=== PATIENT | male | born 1945 | race Native Hawaiian/Other Pacific Islander ===

== ENCOUNTER 2016-06-27 09:10 | Outpatient (CLI) | payer OTHER | END 2016-06-27 19:37 | disposition home or self-care (01) | LOC: LAB 09:10 | DX: R19.7 Diarrhea, unspecified (principal) | CPT/HCPCS: 82272; 87045; 87205; 87328; 87329; 87493; 87798; 87899 ==

== ENCOUNTER 2016-08-24 09:55 | Outpatient (CLI) | payer OTHER | END 2016-08-24 11:00 | disposition home or self-care (01) | LOC: LABW 09:55 | DX: R19.7 Diarrhea, unspecified (principal) | CPT/HCPCS: 82272; 87045; 87077; 87205; 87328; 87329; 87493; 87798; 87899 ==

== ENCOUNTER → 2020-05-18 10:50 | Outpatient (CLI) | payer OTHER ==
[2020-05-18 11:36] LABS: PLATELET COUNT 469 K/uL (142-355)
[2020-05-18 12:01] LABS: POTASSIUM 4.6 mmol/L (3.6-5.2)
== END | disposition home or self-care (01) ==
LOC: LAB 10:50
PROVIDERS: ATTEND Internal Medicine
DX: R03.1 Nonspecific low blood-pressure reading (principal); D64.89 Other specified anemias
CPT/HCPCS: 80053; 85027

== ENCOUNTER 2021-11-14 11:16 | Outpatient (CLI) | payer OTHER | END 2021-11-14 19:58 | disposition home or self-care (01) | LOC: RAD 11:16 | PROVIDERS: ATTEND Internal Medicine Sleep Medicine | DX: R06.09 Other forms of dyspnea (principal) ==

== ENCOUNTER 2022-01-21 07:20 | Inpatient (IN) | payer OTHER ==
[~2022-01-21] VITALS: Ht 180.3 cm; Wt 82.6 kg
[2022-01-21] VITALS (12 sets, daily range): BP systolic 96–180; BP diastolic 51–110; TEMP 98.4–100.1; Ht 180.3 cm; Wt 82.6 kg
[2022-01-21 08:43] LABS: PLATELET COUNT 228 K/uL (142-355)
[2022-01-21 08:59] LABS: PARTIAL THROMBOPLASTIN TIME 40.8 SECONDS (24.5-33.6)
[2022-01-21 09:07] LABS: POTASSIUM 4.2 mmol/L (3.6-5.2)
[2022-01-21] MEDS ORDERED: EUTHYROX50 MCG PO (12:45)
[2022-01-21] MEDS ORDERED: CLOP75TA2 PO (12:46)
[2022-01-21] MEDS ORDERED: SPIRONOLACT25 MG PO (12:46)
[2022-01-21] MEDS ORDERED: OMEP40CA PO (12:47)
[2022-01-21] MEDS ORDERED: XARELTO20 MG PO (12:48)
[2022-01-21] MEDS ORDERED: LISINOPRIL PO (12:50)
[2022-01-21] MEDS ORDERED: RANO500T PO (12:51)
[2022-01-21] MEDS ORDERED: CARV6.25 PO (12:53)
[2022-01-21] MEDS ORDERED: DULO60CA2 PO (12:53)
[2022-01-21] MEDS ORDERED: OMEGA 31000 MG PO (12:54)
[2022-01-21] MEDS ORDERED: METHOTREXA50 MG/2 M2 SC (12:55)
[2022-01-21] MEDS ORDERED: CO Q-10200 MG PO (12:56)
[2022-01-21] MEDS ORDERED: PRESERVISION AREDS 2 PO (12:56)
[2022-01-21] MEDS ORDERED: VITAMIN D325 MCG PO (12:57)
[2022-01-21] MEDS ORDERED: MELATONIN10 M2 PO (12:58)
[2022-01-21] MEDS ORDERED: ZINC50 M1 PO (12:58)
[2022-01-21] MEDS ORDERED: VITAMIN C1000 MG PO (12:59)
[2022-01-21] MEDS ORDERED: VITAMIN DE1000 MCG/M IM (13:00)
[2022-01-21] MEDS ORDERED: TESTOSTERON200 MG/ML IM (13:01)
[2022-01-21] MEDS ORDERED: NITROSTAT0.4 MG SL (13:03)
[2022-01-21] MEDS ORDERED: TYLENOL/COD PO (13:13)
[2022-01-21] MEDS ORDERED: DIAZ5TAB20 PO (13:14)
[2022-01-21] MEDS ORDERED: ANORO ELLIPTA 61 AER INH (13:15)
[2022-01-21] MEDS ORDERED: CRESTOR20 MG PO (13:15)
[2022-01-21 16:38] LABS: POTASSIUM 4.8 mmol/L (3.6-5.2)
[2022-01-22] VITALS: BP 129/81; TEMP 98.6
[2022-01-22 04:00] VITALS: BP 107/72; TEMP 98
== END 2022-01-22 06:55 | disposition short-term general hospital (02) | DRG 177 ==
LOC: ED 07:20 → MED/SURG 09:33
PROVIDERS: Family Medicine; ADMIT Family Medicine; ATTEND Internal Medicine
DX: U07.1 COVID-19 (principal); J18.8 Other pneumonia, unspecified organism; J96.01 Acute respiratory failure with hypoxia; J44.0 Chronic obstructive pulmonary disease with (acute) lower respiratory infection; J44.1 Chronic obstructive pulmonary disease with (acute) exacerbation; J90 Pleural effusion, not elsewhere classified; I48.91 Unspecified atrial fibrillation; Z79.01 Long term (current) use of anticoagulants; I25.2 Old myocardial infarction; I25.10 Atherosclerotic heart disease of native coronary artery without angina pectoris; I11.9 Hypertensive heart disease without heart failure; Z95.0 Presence of cardiac pacemaker
CPT/HCPCS: 36415; 36600; 80053; 81002; 82550; 82805; 83880; 84484; 85027; 85610; 85730; 87040; 87502; 87635; 90658; 93005; 94664; 96360; 96365; 99284; J0248; J0696; J1885; J1940; J2270; J2920; J2930; Q9963; U0003

== ENCOUNTER 2022-07-31 12:16 | Outpatient (CLI) | payer OTHER ==
[~2022-07-31 12:16] MED LIST: ANORO ELLIPTA 61 AER INH; CARV6.25 PO; CLOP75TA2 PO; CO Q-10200 MG PO; CRESTOR20 MG PO; DIAZ5TAB20 PO; DULO60CA2 PO; EUTHYROX50 MCG PO; LISINOPRIL PO; MELATONIN10 M2 PO; METHOTREXA50 MG/2 M2 SC; NITROSTAT0.4 MG SL; OMEGA 31000 MG PO; OMEP40CA PO; PRESERVISION AREDS 2 PO; RANO500T PO; SPIRONOLACT25 MG PO; TESTOSTERON200 MG/ML IM; TYLENOL/COD PO; VITAMIN C1000 MG PO; VITAMIN D325 MCG PO; VITAMIN DE1000 MCG/M IM; XARELTO20 MG PO; ZINC50 M1 PO
[2022-07-31 12:37] LABS: PLATELET COUNT 303 K/uL (142-355)
[2022-07-31 12:55] LABS: POTASSIUM 3.9 mmol/L (3.6-5.2)
== END 2022-07-31 19:00 | disposition home or self-care (01) ==
LOC: LABW 12:16
PROVIDERS: ATTEND Internal Medicine
DX: I11.0 Hypertensive heart disease with heart failure (principal); I50.9 Heart failure, unspecified; I25.10 Atherosclerotic heart disease of native coronary artery without angina pectoris; R06.02 Shortness of breath
CPT/HCPCS: 36415; 80053; 83880; 85027

== ENCOUNTER 2022-09-10 08:50 | Outpatient (CLI) | payer OTHER ==
[2022-09-10 09:24] LABS: PLATELET COUNT 283 K/uL (142-355)
[2022-09-10 09:40] LABS: POTASSIUM 3.6 mmol/L (3.6-5.2)
== END 2022-09-10 19:20 | disposition home or self-care (01) ==
LOC: RESP 08:50 → RAD 08:50 → RESP 09:00
PROVIDERS: ATTEND Nurse Practitioner Family
DX: M35.3 Polymyalgia rheumatica (principal); R06.02 Shortness of breath; Z79.631 Long term (current) use of antimetabolite agent; Z79.899 Other long term (current) drug therapy; E55.9 Vitamin D deficiency, unspecified; E61.1 Iron deficiency; M62.81 Muscle weakness (generalized)
CPT/HCPCS: 36415; 80053; 85027; 85652; 86140

== ENCOUNTER 2022-10-10 14:02 | Outpatient (CLI) | payer OTHER | END 2022-10-10 19:03 | disposition home or self-care (01) | LOC: RAD 14:02 | PROVIDERS: ATTEND Internal Medicine | DX: M25.511 Pain in right shoulder (principal) ==